=== PATIENT | male | born 1940 | race Caucasian/White ===

== ENCOUNTER → 2019-08-13 | Outpatient (CLI) | payer MEDICARE, OTHER ==
[~2019-08-13] MED LIST: AMLO5; ATEN50; BENA20; Norco 5-325 Ta1 EACH PO; SIMV10
[2019-08-13 09:54] LABS: Source, Urine Clean Catch
[2019-08-13 14:06] LABS: Appearance, Urine Clear (Clear); Bilirubin, Urine Neg (Neg); Blood, Urine 1+ (Neg); Color, Urine Yellow (P-Yellow); Glucose Qualitative, Urine 4+ (Neg); Ketones, Urine Neg (Neg); Leukocyte Esterase, Urine Neg (Neg); Nitrite, Urine Neg (Neg); Protein, Urine Neg (Neg); Urobilinogen, Urine NORM (Normal); pH, Urine 6.5 (5.0-8.0)
[2019-08-13 14:41] LABS: Bacteria Rare /hpf; Red Blood Cells, Urine 0-2 /hpf (0-2); Squamous Epithelial Cells Rare /hpf (Few); White Blood Cells, Urine 0-2 /hpf (0-5)
== END | disposition home or self-care (01) ==
LOC: LAB SHORT 09:53 → LAB 09:53 → LAB FUT 08-09 11:05
PROVIDERS: Internal Medicine
DX: R82.998 Other abnormal findings in urine (principal); I10 Essential (primary) hypertension; E11.9 Type 2 diabetes mellitus without complications; E78.5 Hyperlipidemia, unspecified
CPT/HCPCS: 81001

== ENCOUNTER 2024-03-27 05:43 | Day surgery (SDC) | payer MEDICARE, OTHER ==
[~2024-03-27] VITALS: Ht 172.7 cm; Wt 69.1 kg
[2024-03-27] VITALS (13 sets, daily range): BP systolic 146–177; BP diastolic 67–95
[~2024-03-27 05:43] MED LIST changes: +Atenolol50 MG PO; +GABA300 PO; +METF500 PO; +OMEP20ER PO; +ZOCOR20 MG
[2024-03-27] MEDS ORDERED: Lactated Ringer's 1,000 ML IV SCH (06:20)
--- NOTE | 2024-03-27 06:53 | NUR ---
Ambulatory in Day Surgery History, Chart, Medications and Allergies reviewed before start of procedure. Pre-Op teaching done. Pt verbalizes understanding. Patient States Post-Procedure ride home has been arranged.
[2024-03-27] MEDS ORDERED: Bupivacaine 0.5% HCl 5 MG/ML 30MLVIAL ONE (07:00)
[2024-03-27] MEDS ORDERED: CeFAZolin Sodium 2,000 MG in NS 100 ML IV SCH (07:05)
[2024-03-27] MEDS ORDERED: CeFAZolin Sodium 2,000 MG VIAL ONE (07:10)
[2024-03-27] MEDS ORDERED: propofoL 100 ML IV ONE (07:13)
[2024-03-27] MEDS ORDERED: FentaNYL Citrate 50 MCG/ML 2 ML Injection ONE (07:16)
[2024-03-27] MEDS ORDERED: Rocuronium Bromide 10 MG/ML 5ML Injection IV ONE (07:19)
[2024-03-27] MEDS ORDERED: Ondansetron HCl 2 MG / ML 2ML Vial ONE (07:20)
[2024-03-27] MEDS ORDERED: Lidocaine HCl 2% 20 ML MDV ONE (07:28)
[2024-03-27] MEDS ORDERED: ePHEDrine Sulfate 50 MG/ML 1ML Injection ONE (07:43)
[2024-03-27] MEDS ORDERED: Sugammadex Sodium 200 MG/2ML SDV (100 MG/ML) ONE (08:08)
[2024-03-27] MEDS ORDERED: propofoL 40 ML IV ONE (09:00)
[2024-03-27] MEDS ORDERED: propofoL 20 ML IV ONE (09:36)
[2024-03-27] MEDS ORDERED: HYDROcodone 5-APAP 325 TAB PO PRN (09:55)
--- NOTE | 2024-03-27 10:42 | NUR ---
PT TO DAY SURGERY STEP DOWN FROM PACU WITH BILATERAL HERNIA REPAIR; BEDSIDE REPORT RECEIVED. PT IS AWAKE, ALERT AND ORIENTED; RESTING WITH EYES CLOSED. VSS. DENIES PAIN AT THIS TIME. PT HAS 3 ABD INCISION SITES THAT ARE CLOSED WITH EXOFIN AND ARE C/D/I. PT REQUESTING JUICE
--- NOTE | 2024-03-27 10:54 | NUR ---
PT TOLERATING PO FLUIDS AND CRACKERS WELL.
--- NOTE | 2024-03-27 11:04 | NUR ---
PT DECLINES PAIN MEDICATION AND DECLINES ICE PACK. PT STATES HE HAS HIS OWN ICE PACKS AT HOME HE WOULD PREFER TO USE.
--- NOTE | 2024-03-27 11:09 | NUR ---
Discharge instructions reviewed with patient. Patient verbalizes understanding. Copy given to patient to take home. Patient States Post-Procedure ride home has been arranged.
--- NOTE | 2024-03-27 11:25 | NUR ---
PT UP TO GET DRESSED, PT NOT DIZZY, BUT PT FELL TO THE FLOOR HE WAS TRYING TO PULL UP HIS UNDERWEAR. 2 RNS TO ASSIST PT TO STANND AND GET UP OFF THE FLOOR AND INTO THE BED. PT STATES HE IS STILL NOT DIZZY, BUT PT HAS BRUISE ON THE RIGHT SIDE OF HIS FOREHAD AND SMALL SKIN TEAR TO RIGHT ELOW. PT ASSISTED WITH GETTING DRESSED. ICE PACK TO FORHEAD AND BANDAIDE TO ELBOW. DR PEREZ CALLED AND NOTIFIED ABOUT FALL. PLAN TO KEEP PATIENT FOR AT LEAST 3O MINUTES TO OBSERVE. PT SON/RIDE CALLED AND NOTIFIED AND WILL BE IN AT BEDSIDE.
--- NOTE | 2024-03-27 11:44 | NUR ---
EDIT: PT WAS SITTING ON THE SIDE OF THE BED HE BENT DOWN TO PULL UP HIS UNDERWEAR AND FELL FROM THE BED.
--- NOTE | 2024-03-27 11:45 | NUR ---
PT SON AT BEDSIDE, TALKING. PT REMAINS ALERT AND ORIENTED.
--- NOTE | 2024-03-27 12:00 | NUR ---
PT STANDING AT SIDE OF BED, PT MORE STEADY ON HIS FEET, DENIES DIZZINESS, STATES HIS HEAD FEELS "FINE". DR PEREZ AT BEDSIDE TO ASSESS PT. PT APPEARS STABLE AT THIS TIME AND DR PEREZ SAYS PT MAY DISCHARGE TO HOME. DR PEREZ TOLD PT TO COME TO THE ER IF HE EXPERIENCES A BAD HEADACHE, VISUAL CHANGES, BALANCE ISSUES, WEAKNES. PT STATES AN UNDERSTANDING. PT STATES HE HAS IS SON AND DIL AT HOME WITH HIM IF HE REQUIRES ASSISTANCE. PT INCISIONS REMAIN C/D/I.
--- NOTE | 2024-03-27 12:17 | NUR ---
PT STANDING AND WALKING WITHOUT ISSUES, ABLE TO SIT FROM STANDING, AND STAND FROM SITTING. CURRENTLY WAITING FOR HIS RIDE TO RETURN; WENT TO [employer] HIS RX
--- NOTE | 2024-03-27 12:40 | NUR ---
PT STILL DOING WELL. HEAD FEELS NORMAL. Patient up to Ambulate independently. Gait steady. Discharged via wheelchair to private car for ride home.
== END 2024-03-27 12:41 | disposition home or self-care (01) ==
LOC: ORSCMMR 05:43 → ORD 07:30 → ORSCMMR 12:41
PROVIDERS: Surgery
PROC: 0YUA4JZ Supplement Bilateral Inguinal Region with Synthetic Substitute, Percutaneous Endoscopic Approach (ICD-10-PCS; principal; 2024-03-27 07:30)
PROC: 8E0W4CZ Robotic Assisted Procedure of Trunk Region, Percutaneous Endoscopic Approach (ICD-10-PCS; principal; 2024-03-27 07:30)
DX: K40.20 Bilateral inguinal hernia, without obstruction or gangrene, not specified as recurrent (principal); I10 Essential (primary) hypertension; E11.9 Type 2 diabetes mellitus without complications; E78.5 Hyperlipidemia, unspecified; Z79.84 Long term (current) use of oral hypoglycemic drugs; Z79.899 Other long term (current) drug therapy
CPT/HCPCS: 82947; C1781; J0690; J2405; J2704; J3010; J7120